=== PATIENT | female | born 1930 | race Caucasian/White ===

== ENCOUNTER 2017-01-30 13:45 | Outpatient (RCR) | payer MEDICARE, MEDICAID ==
[~2017-01-30] VITALS: Ht 144.8 cm; Wt 63.5 kg
== END 2017-02-07 | disposition home or self-care (01) ==
LOC: WCC 13:45
DX: L03.115 Cellulitis of right lower limb (principal); L03.116 Cellulitis of left lower limb; L97.813 Non-pressure chronic ulcer of other part of right lower leg with necrosis of muscle; L97.921 Non-pressure chronic ulcer of unspecified part of left lower leg limited to breakdown of skin; L97.511 Non-pressure chronic ulcer of other part of right foot limited to breakdown of skin; I11.0 Hypertensive heart disease with heart failure; I50.9 Heart failure, unspecified; F32.9 Major depressive disorder, single episode, unspecified
CPT/HCPCS: 11043; 87070; 87181; 87205